=== PATIENT | female | born 1990 | race Caucasian/White ===

== ENCOUNTER 2020-12-31 07:50 | Emergency (ER) | payer OTHER ==
[2020-12-31 08:19] VITALS: TEMP 98; BMI 28.8
[2020-12-31 09:44] LABS: PH,URINE 7.5 (5.0-8.0); URINE APPEARANCE CLEAR; URINE BILIRUBIN NEGATIVE (NEGATIVE); URINE COLOR YELLOW; URINE GLUCOSE (UA) NEGATIVE (NEGATIVE); URINE KETONE NEGATIVE (NEGATIVE); URINE LEUK ESTERASE NEGATIVE (NEGATIVE); URINE NITRITE NEGATIVE (NEGATIVE); URINE PROTEIN NEGATIVE (NEGATIVE); URINE UROBILINOGEN 0.2 mg/dL (0.2-1.0)
[2020-12-31 12:36] VITALS: BP 125/81; PULSE 79
== END 2020-12-31 12:34 | disposition home or self-care (01) ==
LOC: JER 07:50
DX: O9A.212 Injury, poisoning and certain other consequences of external causes complicating pregnancy, second trimester (principal); S13.9XXA Sprain of joints and ligaments of unspecified parts of neck, initial encounter; V43.52XA Car driver injured in collision with other type car in traffic accident, initial encounter; Z3A.14 14 weeks gestation of pregnancy
CPT/HCPCS: 72125-TC; 76801-TC; 81003; 84703; 99285-25